=== PATIENT | female | born 1980 | race Caucasian/White ===

== ENCOUNTER 2017-04-10 18:21 | Emergency (ER) | payer SELFPAY ==
[2017-04-10 18:55] LABS: #Eosinphils 0.2 thou/uL (0.0-0.7); #Lymphocytes 2.5 thou/uL (1.20-3.40); #Monocytes 0.5 thou/uL (0.11-0.59); #Neutrophils 4.1 thou/uL (1.40-6.50); %Basophils 0.7 % (0.0-1.0); %Lymphocytes 34.2 % (21.0-51.0); %Monocytes 6.3 % (0.0-10.0); %Neutrophils 55.8 % (42.0-75.0); Hemoglobin 11.7 g/dL (12.0-16.0); Mean Corpuscular HGB CONC 32.3 g/dL (32.0-36.0); Mean Corpuscular Hemoglobin 27.5 pg (27.0-31.0); Mean Corpuscular Volume 84.9 fl (81.0-99.0); Platelet Count 279 thou/uL (130-400); Red Blood Cell (RBC) Count 4.27 mill/uL (4.20-5.40); White Blood Cell (WBC) Count 7.3 thou/uL (4.8-10.8)
[2017-04-10 19:18] LABS: ALT (SGPT) 92 U/L (8-55); AST (SGOT) 30 U/L (5-34); Albumin 4.2 g/dL (3.5-5.0); Alkaline Phosphatase 84 U/L (40-150); Anion Gap 15 mmol/L (10-20); BUN (Urea Nitrogen) 14 mg/dL (7.0-18.7); Bilirubin, Total 0.6 mg/dL (0.2-1.2); Calc. Creatinine Clearance 0 mL/min (70-130); Calcium 9.8 mg/dL (7.8-10.44); Carbon Dioxide 22 mmol/L (22-29); Chloride 106 mmol/L (98-107); Estimated GFR-MDRD Greater than 90; Globulin 3.2 g/dL (2.4-3.5); Glucose 108 mg/dL (70-105); Potassium 3.6 mmol/L (3.5-5.1); Protein, Total 7.4 g/dL (6.0-8.3); Sodium 139 mmol/L (136-145)
[2017-04-10] MEDS ORDERED: Metoclopramide HCl 10 MG/2 ML VIAL ONE (20:15)
[2017-04-10] MEDS ORDERED: diphenhydrAMINE 50 MG/ML VIAL ONE (20:15)
[2017-04-10 21:36] LABS: Bilirubin Negative (Negative); Blood, Urine Negative (Negative); Clarity CLEAR (Clear); Glucose, Urine (Dipstick) Negative (Negative); Leukocyte Trace (Negative); Nitrite Negative (Negative); Protein, Urine (Dipstick) Negative (Neg-Trace); Specific Gravity, Urine 1.014 (1.002-1.036); Urobilinogen 0.2 mg/dL (0.2-1.0)
[2017-04-10 21:38] LABS: Bacteria/HPF Rare-Few HPF (None Seen); Hyaline Casts/LPF 0-3 HYALINE CAST LPF (0-3 Hyaline); Squamous Epithelial 0-3 HPF (0-3); WBC/HPF 0-3 HPF (0-3)
== END 2017-04-10 21:42 | disposition home or self-care (01) ==
LOC: ERS 18:21
DX: R51 Headache (principal); Z79.899 Other long term (current) drug therapy
CPT/HCPCS: 36415; 80053; 81003; 81015; 85025; 96361; 96374; 96375; J1200; J2765

== ENCOUNTER 2017-04-23 13:55 | Inpatient (IN) | payer SELFPAY ==
[2017-04-23 14:42] LABS: Pregnancy Test - Urine (BHCG) Negative (Negative); Pregu Control Background? CLEAR/WHITE (CLR/WHITE); Pregu Control Bar Appear? YES (CONTROL BAR)
[2017-04-23 14:43] LABS: Specific Gravity 1.005 (1.002-1.036)
[2017-04-23 14:56] LABS: Bilirubin Negative (Negative); Blood, Urine Negative (Negative); Clarity CLEAR (Clear); Glucose, Urine (Dipstick) Negative (Negative); Leukocyte Negative (Negative); Nitrite Negative (Negative); Protein, Urine (Dipstick) Negative (Neg-Trace); Specific Gravity, Urine 1.014 (1.002-1.036); Urobilinogen 0.2 mg/dL (0.2-1.0)
[2017-04-23 15:22] LABS: #Eosinphils 0.1 thou/uL (0.0-0.7); #Lymphocytes 1.1 thou/uL (1.20-3.40); #Monocytes 0.3 thou/uL (0.11-0.59); #Neutrophils 4.3 thou/uL (1.40-6.50); %Basophils 0.3 % (0.0-1.0); %Monocytes 4.4 % (0.0-10.0); %Neutrophils 75.3 % (42.0-75.0); Hemoglobin 12.2 g/dL (12.0-16.0); Mean Corpuscular HGB CONC 32.1 g/dL (32.0-36.0); Mean Corpuscular Hemoglobin 27.7 pg (27.0-31.0); Mean Corpuscular Volume 86.2 fl (81.0-99.0); Mean Platelet Volume 7.8 fL (7.4-10.4); Platelet Count 258 thou/uL (130-400); Red Blood Cell (RBC) Count 4.41 mill/uL (4.20-5.40); White Blood Cell (WBC) Count 5.8 thou/uL (4.8-10.8)
[2017-04-23 15:35] LABS: ALT (SGPT) 129 U/L (8-55); AST (SGOT) 168 U/L (5-34); Albumin 4.2 g/dL (3.5-5.0); Alkaline Phosphatase 96 U/L (40-150); Anion Gap 13 mmol/L (10-20); BUN (Urea Nitrogen) 12 mg/dL (7.0-18.7); Bilirubin, Total 0.8 mg/dL (0.2-1.2); Calc. Creatinine Clearance 0 mL/min (70-130); Calcium 9.5 mg/dL (7.8-10.44); Carbon Dioxide 24 mmol/L (22-29); Chloride 106 mmol/L (98-107); Estimated GFR-MDRD Greater than 90; Globulin 3.4 g/dL (2.4-3.5); Glucose 134 mg/dL (70-105); Protein, Total 7.6 g/dL (6.0-8.3); Sodium 139 mmol/L (136-145)
[2017-04-23] MEDS ORDERED: Ondansetron ODT 4 MG TAB ONE (16:29)
[2017-04-23] MEDS ORDERED: Ketorolac Tromethamine 30 MG/ML VIAL ONE (16:29)
[2017-04-23 16:30] LABS: Lipase Greater than 16000 U/L (8-78)
--- NOTE | 2017-04-23 17:04 | ULT ---
GALLBLADDER ULTRASOUND: CLINICAL HISTORY: Pain. COMPARISON: No prior comparison. FINDINGS: There is no focal hepatic lesion identified. There is increased echogenicity with shadowing within t he gallbladder compatible with cholelithiasis. Gallbladder wall is mildly thickened, although incomp letely distended. Gallbladder wall measures up to approximately 4 mm in thickness. The common duct is normal in diameter at 4 mm. No ascites. There is a slight degree of heterogeneity/increased echogenicity of the hepatic parenchyma when refer encing the adjacent right kidney. IMPRESSION: 1. Cholelithiasis. Borderline gallbladder wall thickening. Clinical correlation to exclude evidenc e of cholecystitis. 2. Findings which may relate to hepatic steatosis and/or hepatocellular disease. Correlation with l iver function enzymes would prove useful. POS: GERMÁN
--- NOTE | 2017-04-23 18:31 | HP ---
DATE OF ADMISSION: 04/23/2017 CHIEF COMPLAINT: Abdominal pain. HISTORY OF PRESENT ILLNESS: This is a 36-year-old female with a history of intermittent right upper quadrant pain, previously told that she had gallbladder disease and now presents with gallstone pancr eatitis. Pain is 9/10 in the center of her abdomen, associated with nausea and vomiting. Nothing ma kes it better. Seen in the emergency department where she has been found to have a high lipase as we ll as gallbladder with gallstones. No previous jaundice or pancreatitis. PAST MEDICAL HISTORY: Includes vertigo and back pain. PAST SURGICAL HISTORY: . MEDICINES TAKEN DAILY: Unknown medicine for vertigo and nortriptyline 25 mg a day for back pain. ALLERGIES: She denies. SOCIAL HISTORY: Single. No smoking, alcohol or other drugs. REVIEW OF SYSTEMS: Otherwise, negative. PHYSICAL EXAMINATION: HEENT: Sclerae are anicteric. Oropharynx is clear. NECK: No lymphadenopathy. CHEST: Clear. HEART: Regular rate and rhythm. ABDOMEN: Soft, tender epigastric, localized guarding, no rebound, no abdominal or inguinal hernias. EXTREMITIES: No ischemia or edema to extremities. LABORATORY DATA: Sodium 139, potassium 4, creatinine 0.68, glucose 134, AST and ALT are elevated at 168 and 129, alkaline phosphatase 96. Bilirubin is normal. Lipase greater than 16,000. White blood cell count is 5, hemoglobin 12, platelets are 258. Urine is negative. Ultrasound, cholelithiasis, borderline wall thickening, common bile duct normal appearing at 4 mm. ASSESSMENT: Gallstone pancreatitis. PLAN: Admit for fluid resuscitation and bowel rest. Laparoscopic cholecystectomy with intraoperativ e cholangiogram when pancreatitis improved clinically.
[2017-04-23] MEDS ORDERED: Ketorolac Tromethamine 30 MG/ML VIAL IVP PRN ×2 (19:51→19:52)
[2017-04-23] MEDS ORDERED: Ondansetron ODT 4 MG TAB SL PRN (19:51)
[2017-04-23] MEDS ORDERED: Ondansetron HCl/PF 4 MG/2 ML Vial IVP PRN ×2 (19:51→19:52)
[2017-04-23] MEDS ORDERED: hydrALAZINE 20 MG/ML VIAL SLOW IVP PRN (19:52)
[2017-04-23] MEDS ORDERED: Acetaminophen 1,000 MG in Premix Bag 1 BAG IVPB PRN (19:52)
[2017-04-23] MEDS ORDERED: Promethazine HCl 25 MG/ML VIAL IM PRN (19:52)
[2017-04-23] MEDS ORDERED: Morphine 4 MG/ML Carpuject SLOW IVP PRN ×2 (19:52)
[2017-04-23] MEDS ORDERED: Dextrose 5% in Water 1,000 ML IV PRN (19:52)
[2017-04-23] MEDS ORDERED: Dextrose 50% Abboject 50 ML SYRINGE SLOW IVP PRN (19:52)
[2017-04-23] MEDS ORDERED: Sodium Chloride 0.9% 1,000 ML IV SCH (20:30)
[2017-04-23] MEDS: Famotidine/PF 20 mg/2ml Vial SLOW IVP SCH (20:42)
[2017-04-23] MEDS: D5 1/2 NS w/20 mEq KCL 1,000 ML IV SCH (21:00)
[2017-04-23] MEDS: Sodium Chloride 0.9% 1,000 ML IV SCH (21:00)
[2017-04-23 21:09] VITALS: BMI 38.1
[2017-04-24] MEDS: Sodium Chloride 0.9% 1,000 ML IV SCH (03:22)
[2017-04-24] MEDS: D5 1/2 NS w/20 mEq KCL 1,000 ML IV SCH ×3 (05:20→20:31)
[2017-04-24 05:47] LABS: #Eosinphils 0.1 thou/uL (0.0-0.7); #Lymphocytes 1.9 thou/uL (1.20-3.40); #Monocytes 0.2 thou/uL (0.11-0.59); #Neutrophils 1.7 thou/uL (1.40-6.50); %Basophils 0.2 % (0.0-1.0); %Lymphocytes 48.3 % (21.0-51.0); %Monocytes 5.3 % (0.0-10.0); %Neutrophils 43.2 % (42.0-75.0); Hemoglobin 10.3 g/dL (12.0-16.0); Mean Corpuscular HGB CONC 32.2 g/dL (32.0-36.0); Mean Corpuscular Hemoglobin 27.8 pg (27.0-31.0); Mean Corpuscular Volume 86.3 fl (81.0-99.0); Mean Platelet Volume 7.8 fL (7.4-10.4); Platelet Count 222 thou/uL (130-400); RBC Distribution Width 12.9 % (11.5-14.5)
[2017-04-24 05:58] LABS: ALT (SGPT) 83 U/L (8-55); AST (SGOT) 57 U/L (5-34); Albumin 3.3 g/dL (3.5-5.0); Alkaline Phosphatase 70 U/L (40-150); Anion Gap 9 mmol/L (10-20); BUN (Urea Nitrogen) 10 mg/dL (7.0-18.7); Bilirubin, Total 0.6 mg/dL (0.2-1.2); Calc. Creatinine Clearance 206 mL/min (70-130); Calcium 8.5 mg/dL (7.8-10.44); Carbon Dioxide 24 mmol/L (22-29); Chloride 111 mmol/L (98-107); Estimated GFR-MDRD Greater than 90; Globulin 2.8 g/dL (2.4-3.5); Glucose 94 mg/dL (70-105); Lipase 885 U/L (8-78); Potassium 3.6 mmol/L (3.5-5.1); Protein, Total 6.1 g/dL (6.0-8.3); Sodium 140 mmol/L (136-145)
[2017-04-24] MEDS: Famotidine/PF 20 mg/2ml Vial SLOW IVP SCH ×2 (08:25→20:31)
--- NOTE | 2017-04-24 10:52 | PRG ---
DATE OF SERVICE: 04/24/2017 SUBJECTIVE: Ms. Huitron feels better today. Her pain is improved. No nausea. PHYSICAL EXAMINATION: VITAL SIGNS: She is afebrile. Vital signs are stable. ABDOMEN: Soft, head still operator in the epigastric area, but no guarding or rebound. LABORATORY DATA: Her lipase is trending down as are her liver function test. ASSESSMENT: Gallstone pancreatitis, improved. PLAN: Laparoscopic cholecystectomy with intraoperative cholangiogram tomorrow. Risks, benefits, and alternatives discussed. She gives consent. We will do this tomorrow.
[2017-04-25 04:31] LABS: ALT (SGPT) 63 U/L (8-55); AST (SGOT) 30 U/L (5-34); Albumin 3.5 g/dL (3.5-5.0); Alkaline Phosphatase 67 U/L (40-150); Anion Gap 12 mmol/L (10-20); BUN (Urea Nitrogen) 7 mg/dL (7.0-18.7); Bilirubin, Total 0.9 mg/dL (0.2-1.2); Calc. Creatinine Clearance 203 mL/min (70-130); Calcium 8.8 mg/dL (7.8-10.44); Carbon Dioxide 22 mmol/L (22-29); Chloride 110 mmol/L (98-107); Estimated GFR-MDRD Greater than 90; Globulin 2.9 g/dL (2.4-3.5); Glucose 92 mg/dL (70-105); Lipase 47 U/L (8-78); Potassium 3.7 mmol/L (3.5-5.1); Protein, Total 6.4 g/dL (6.0-8.3); Sodium 140 mmol/L (136-145)
[2017-04-25] MEDS: D5 1/2 NS w/20 mEq KCL 1,000 ML IV SCH ×4 (06:18→23:06)
--- NOTE | 2017-04-25 09:39 | PRG ---
DATE OF SERVICE: 04/25/2017 SUBJECTIVE: Ms. Huitron feels good. Her pain is mostly resolved. OBJECTIVE: VITAL SIGNS: She is afebrile. Vital signs are stable. LABORATORY DATA: Her lipase and liver function tests have normalized. ASSESSMENT: Gallstone pancreatitis, resolved. PLAN: Laparoscopic cholecystectomy with intraoperative cholangiogram today. Risks, benefits, altern atives discussed. She gives consent.
[2017-04-25] MEDS: Famotidine/PF 20 mg/2ml Vial SLOW IVP SCH (12:16)
[2017-04-25] MEDS ORDERED: CEFAZOLIN/Water 2 GM/20 ML SYRINGE ONE (13:21)
[2017-04-25] MEDS ORDERED: Esmolol 100 MG/10 ML VIAL ONE (14:05)
[2017-04-25] MEDS ORDERED: Glycopyrrolate 0.2 MG/ML 5 ML SYRINGE ONE (14:05)
[2017-04-25] MEDS ORDERED: Ketorolac Tromethamine 30 MG/ML VIAL ONE (14:05)
[2017-04-25] MEDS ORDERED: Metoclopramide HCl 10 MG/2 ML VIAL ONE (14:05)
[2017-04-25] MEDS ORDERED: Ondansetron HCl/PF 4 MG/2 ML Vial ONE (14:05)
[2017-04-25] MEDS ORDERED: Propofol 200 MG/20 ML VIAL ONE (14:05)
[2017-04-25] MEDS ORDERED: diphenhydrAMINE 50 MG/ML VIAL ONE (14:05)
[2017-04-25] MEDS ORDERED: Lidocaine 1% PF 5 ML VIAL ONE (14:05)
[2017-04-25] MEDS ORDERED: Dexamethasone 20 MG/5 ML VIAL ONE (14:05)
[2017-04-25] MEDS ORDERED: Fentanyl 100 MCG/2 ML VIAL ONE ×2 (14:30→16:08)
[2017-04-25] MEDS ORDERED: HYDROmorphone 0.5 MG/0.5 ML SYRINGE ONE (14:30)
[2017-04-25] MEDS ORDERED: Bupivacaine/Epinephrine 0.25% 30 ML VIAL ONE (14:31)
[2017-04-25] MEDS ORDERED: Iothalamate Meglumine 60% 50 ML VIAL FS ONE (14:31)
[2017-04-25] MEDS ORDERED: Midazolam HCl 2 mg/2 ml Vial ONE (14:36)
[2017-04-25] MEDS ORDERED: Ondansetron HCl/PF 4 MG/2 ML Vial IVP PRN ×2 (15:59→16:50)
[2017-04-25] MEDS ORDERED: Promethazine HCl 25 MG/ML VIAL SLOW IVP PRN (15:59)
[2017-04-25] MEDS ORDERED: Promethazine HCl 25 MG/ML VIAL IM PRN ×2 (15:59→16:50)
--- NOTE | 2017-04-25 16:27 | RAD ---
CHOLANGIOGRAM IN SURGERY 04/25/17 HISTORY: Cholelithiasis. COMPARISON: Gallbladder ultrasound 04/23/17. FINDINGS/IMPRESSION: Two limited intraoperative fluoroscopic views from a cholangiogram taken during surgery were submitte d for interpretation. Contrast is seen within the common bile duct with reflux of contrast into the p ancreatic duct. Contrast is also seen in the duodenum. No filling defects are present. POS: MADELYN
[2017-04-25] MEDS ORDERED: Mag-Al 1200 mg/1200 mg/30 ML UDCUP PO PRN (16:50)
[2017-04-25] MEDS ORDERED: Morphine 4 MG/ML Carpuject SLOW IVP PRN ×2 (16:50)
[2017-04-25] MEDS ORDERED: Dextrose 5% in Water 1,000 ML IV PRN (16:50)
[2017-04-25] MEDS ORDERED: Calcium Carbonate 500 MG ChewTAB PO PRN (16:50)
[2017-04-25] MEDS ORDERED: Dextrose 50% Abboject 50 ML SYRINGE SLOW IVP PRN (16:50)
[2017-04-25] MEDS ORDERED: hydrALAZINE 20 MG/ML VIAL SLOW IVP PRN (16:50)
[2017-04-25] MEDS ORDERED: HYDROcodone/Acetaminophen 10/325 mg Tablet PO PRN (16:50)
[2017-04-25] MEDS: HYDROcodone/Acetaminophen 10/325 mg Tablet PO PRN (20:18)
--- NOTE | 2017-04-25 20:28 | OP ---
DATE OF PROCEDURE: 04/25/2017 PREOPERATIVE DIAGNOSIS: Gallstone pancreatitis. POSTOPERATIVE DIAGNOSIS: Gallstone pancreatitis. PROCEDURE: Laparoscopic cholecystectomy with intraoperative cholangiogram. SURGEON: Harlan Adam M.D. ANESTHESIA: General. ESTIMATED BLOOD LOSS: Minimal. COMPLICATIONS: None. SPECIMEN: Gallbladder. FINDINGS: Normal cholangiogram. TECHNIQUE: The patient was taken to the operating room and placed supine on the table. After genera l anesthetic was obtained, the abdomen was prepped and draped in a sterile fashion. Curved incision was made below the umbilicus. Cautery was used to dissect down to and score the fascia. Abdominal c avity was entered bluntly using a Val clamp. Holding stitch of PDS was placed on each side of the fascia. Kasper trocar was placed. High-flow pneumoperitoneum was obtained. Upper midline 5-mm port and two right upper quadrant 5-mm ports were placed under direct visualization. The gallbladder was retracted from the gallbladder fossa. The peritoneum was taken down anteriorly and posteriorly. Cr itical view triangle was seen showing only cystic duct and cystic artery branching from medial to lat eral, no other branching structures. A clip was placed on the cystic duct. A small ductotomy was ma de just proximal to that. Cholangiocatheter was brought in through a separate stab incision and a ch olangiogram was performed, which goes good contrast flow into the duodenum without obstruction. Chol angiocatheter was removed. Two clips were placed proximally on the cystic duct, cut using laparoscop ic scissors. Cystic artery was taken using two clips proximally, one clip distally, and cut using la paroscopic scissors. Cautery was used to dissect the gallbladder out of the gallbladder fossa. The gallbladder placed in an Endocatch bag and brought out through the Kasper. No bleeding in the liver bed. All port sites were infiltrated using local anesthetic. All ports were removed under camera vi sualization. Pneumoperitoneum was let down. PDS was used to close the fascial defect below the umbi licus. All incisions were irrigated and closed using 4-0 Monocryl and Dermabond. The patient went t o recovery in stable condition. All instrument counts, needle counts, and lap counts were correct.
[2017-04-25] MEDS ORDERED: Famotidine/PF 20 mg/2ml Vial SLOW IVP SCH (21:00)
[2017-04-25] MEDS ORDERED: Famotidine 20 MG TAB PO SCH (21:00)
[2017-04-26] MEDS: HYDROcodone/Acetaminophen 10/325 mg Tablet PO PRN (01:27)
[2017-04-26 08:19] VITALS: BP 108/68; TEMP 98
--- NOTE | 2017-04-26 08:49 | DIS ---
DATE OF ADMISSION: 04/23/2017 DATE OF DISCHARGE: 04/26/2017 ADMIT DIAGNOSIS: Gallstone pancreatitis. DISCHARGE DIAGNOSIS: Gallstone pancreatitis. PROCEDURES: Laparoscopic cholecystectomy with intraoperative cholangiogram by Dr. Adam without co mplication. CONDITION AT DISCHARGE: Improved. STAFF: Dr. Harlan Adam. HOSPITAL COURSE: On postoperative day #2, the patient's pancreatitis had resolved. She had laparosc opic cholecystectomy with cholangiogram that was normal. On hospital day #3, the patient is doing we ll and tolerating diet. Discharged home on [place] and Zo[place]. Follow up with me in the office in 2 w eeks.
--- NOTE | 2017-05-04 07:02 | PQF ---
IZAIAH MARIO BRYAN DAVID MD [id number] CLINICAL DOCUMENTATION CLARIFICATION FORM: POST DISCHARGE Addendum to original discharge summary date: ____ Late entry note date: __ DATE: 05/04/2017 ATTN: DR. KAISER Please exercise your independent, professional judgment in responding to the clarification form. Clinical indicators are provided on the bottom of this form for your review [ ] Low Osmolar Contrast [ ] High Osmolar Contrast [ ] Other type of Contrast [ ] Unable to determine For continuity of documentation, please document condition throughout progress notes and discharge summary. Thank You. CLINICAL INDICATORS - SIGNS/ SYMPTOMS / LABS: H&P - GALLSTONE PANCREATITIS 04/25 OP REPORT - LAPAROSCOPIC CHOLECYSTECTOMY WITH INTRAOPERATIVE CHOLANGIOGRAM DS - GALLSTONE PANCREATITIS RISK FACTORS: GS PANCREATITIS TREATMENTS: LAPAROSCOPIC CHOLECYSTECTOMY WITH INTRAOPERATIVE CHOLANGIOGRAM (This form is maintained as a part of the permanent medical record) 2014 [employer] All Rights Reserved Zuleika Cotton, ANGELIC, CLERK GUIDE-H [email or web address] [phone] MTDD
--- NOTE | 2017-05-04 07:09 | PQF ---
IZAIAH MARIO BRYAN DAVID MD [id number] CLINICAL DOCUMENTATION CLARIFICATION FORM: POST DISCHARGE Addendum to original discharge summary date: ____ Late entry note date: __ DATE: 05/04/2017 ATTN: DR. KAISER Please exercise your independent, professional judgment in responding to the clarification form. Clinical indicators are provided on the bottom of this form for your review ___ Final Diagnosis on the Pathology report: ___ Progress Notes indicate: Clarification of Pathology report: Please check appropriate box(s): [ ] Agree w the pathology finding of: [ ] Other explanation of pathology findings (please specify) [ ] Other diagnosis [ ] Unable to determine For continuity of documentation, please document condition throughout progress notes and discharge summary. Thank You. CLINICAL INDICATORS - SIGNS/ SYMPTOMS / LABS: ULTRASOUND - CHOLELITHIASIS PATH REPORT - CHRONIC CHOLECYSTITIS, CHOLELITHIASIS H&P - GALLSTONE PANCREATITIS 04/25 OP NOTE - CHOLELITHIASIS DS - GALLSTONE PANCREATITIS RISK FACTORS: GALLSTONE PANCREATITIS TREATMENTS: LAPAROSCOPIC CHOLECYSTECTOMY WITH INTRAOPERATIVE CHOLANGIOGRAM (This form is maintained as a part of the permanent medical record) 2014 [employer]. All Rights Reserved Zuleika Cotton, ANGELIC, AIR BRAKE RIGGER-H [email or web address] [phone] LARS
== END 2017-04-26 11:30 | disposition home or self-care (01) | DRG 419 ==
LOC: ERS 13:55 → SJJU 19:45
PROVIDERS: ADMIT Surgery; ATTEND Surgery
PROC: 0FT44ZZ Resection of Gallbladder, Percutaneous Endoscopic Approach (ICD-10-PCS; principal; 2017-04-25)
PROC: BF13YZZ Fluoroscopy of Gallbladder and Bile Ducts using Other Contrast (ICD-10-PCS; 2017-04-25)
DX: K85.10 Biliary acute pancreatitis without necrosis or infection (principal)
CPT/HCPCS: 36415; 47532; 76705; 80053; 81003; 81025; 83690; 85025; 88304; 96360; 96361; 96372; A4216; J1100; J1170; J1200; J1885; J2001; J2250; J2405; J2704; J2765; J3010; Q0162; Q9961; S0028

== ENCOUNTER 2018-03-18 05:47 | Emergency (ER) | payer SELFPAY ==
[2018-03-18 07:18] LABS: Bilirubin Negative (Negative); Blood, Urine Moderate (Negative); Clarity TURBID (Clear); Glucose, Urine (Dipstick) Negative (Negative); Leukocyte Large (Negative); Nitrite Negative (Negative); Protein, Urine (Dipstick) 100 mg/dL (Neg-Trace); Specific Gravity, Urine 1.026 (1.002-1.036); pH, Urine 5.5 (5.0-9.0)
[2018-03-18 07:21] LABS: Bacteria/HPF Rare-Few HPF (None Seen); Squamous Epithelial 21-50 HPF (0-3)
[2018-03-18 07:26] LABS: Pathc Cast-AUWi Flag 3.09 (0-2.49)
[2018-03-18 07:32] LABS: Pregnancy Test - Urine (BHCG) Negative (Negative); Pregu Control Background? CLEAR/WHITE (CLR/WHITE); Pregu Control Bar Appear? YES (CONTROL BAR); Specific Gravity 1.026 (1.002-1.036)
[2018-03-18 07:34] LABS: RBC/HPF 0-3 HPF (0-3)
[2018-03-18 07:35] LABS: Hyaline Casts/LPF 0-3 HYALINE CAST LPF (0-3 Hyaline); Manual Microscopic Reviewed? No Path Casts Seen; Trichomonas/HPF Rare HPF (None Seen)
[2018-03-18] MEDS ORDERED: cefTRIAXone\\ROCEPHIN 250 MG VIAL ONE (07:51)
[2018-03-18] MEDS ORDERED: Azithromycin 250 MG TAB ONE (07:51)
[2018-03-18] MEDS ORDERED: Lidocaine 1% PF 5 ML VIAL ONE (07:51)
--- NOTE | 2018-03-18 08:11 | RAD ---
RADIOGRAPH CHEST 2 VIEWS: HISTORY: 37-year-old female with cough for 3 weeks. FINDINGS: The lungs are clear. The cardiomediastinal silhouette and hilar shadows are normal. There is no pleur al effusion. The osseous structures appear normal. There is no pneumothorax. IMPRESSION: Normal. jn [] POS: MADELYN
[2018-03-20 14:04] LABS: Chlamydia by PCR Not Detected (NotDetected); GC by PCR Not Detected (NotDetected)
== END 2018-03-18 08:04 | disposition home or self-care (01) ==
LOC: ERS 05:47
DX: A59.01 Trichomonal vulvovaginitis (principal); F17.210 Nicotine dependence, cigarettes, uncomplicated
CPT/HCPCS: 71046; 81003; 81015; 81025; 87086; 87480; 87491; 87510; 87591; 87660; 96372; J0696; J2001